=== PATIENT | female | born 1990 | race Two or more races ===

== ENCOUNTER 2020-07-28 10:43 | Outpatient (REF) | payer MEDICAID, SELFPAY | END 2020-07-28 10:44 | disposition home or self-care (01) | LOC: HO.LAB 10:43 | PROVIDERS: Visit Provider Internal Medicine | DX: Z20.828 Contact with and (suspected) exposure to other viral communicable diseases (principal) | CPT/HCPCS: C9803; U0003 ==

== ENCOUNTER 2020-09-01 15:01 | Outpatient (REF) | payer MEDICAID, SELFPAY | END 2020-09-01 15:02 | disposition home or self-care (01) | LOC: HO.LAB 15:01 | PROVIDERS: Visit Provider Internal Medicine | DX: Z20.828 Contact with and (suspected) exposure to other viral communicable diseases (principal) | CPT/HCPCS: C9803; U0003 ==

== ENCOUNTER → 2022-11-15 10:29 | Outpatient (BNVA) | payer OTHER, SELFPAY | PROVIDERS: PCP Nurse Practitioner Family; Visit Provider Physician Assistant Surgical ==

== ENCOUNTER 2022-11-29 08:59 | Outpatient (REF) | payer MEDICAID, SELFPAY ==
[2022-11-29 10:02] LABS: MANUAL DIFF FLAG NO
[2022-11-29 10:56] LABS: Basophils Percent Auto 0.3 % (0-2); Eosinophils Absolute Auto 0.2 X10*3/uL (0.0-0.4); Eosinophils Percent Auto 1.8 % (0-4); Hematocrit 35.7 % (37.0-47.0); Hemoglobin 11.3 g/dl (12.0-16.0); Imm Gran Abs Auto 0.03 X10*3/uL (0.00-0.03); Imm Gran Pct Auto 0.3 % (0.0-0.4); Lymphocytes Percent Auto 22.8 % (20-40); Mean Corpuscular HGB Conc 31.7 g/dl (31.0-35.0); Mean Corpuscular Hemoglobin 27.5 pg (27.0-33.0); Mean Corpuscular Volume 86.9 fL (80.0-98.0); Mean Platelet Volume 10.8 fL (9.4-12.3); Monocytes Absolute Auto 0.4 X10*3/uL (0.1-1.2); Neutrophils Absolute Auto 6.3 x10*3/uL (2.0-8.3); Neutrophils Percent Auto 70.8 % (45-73); Platelet Count 354 X10*3/uL (160-400); Red Blood Count 4.11 X10*6/uL (4.20-5.50); Red Cell Distribution Width 14.1 % (11.0-16.0); White Blood Count 8.9 X10*3/uL (4.8-10.8)
[2022-11-29 11:13] LABS: Estimated Average Glucose 111 mg/dL; Hemoglobin A1c % 5.5 %
[2022-11-29 12:53] LABS: Anion Gap 13 (12-20); Blood Urea Nitrogen 7 mg/dL (9-16); Calcium 8.9 mg/dL (8.4-10.2); Carbon Dioxide 25 mmol/L (22-29); Chloride 106 mmol/L (96-108); Cholesterol 178 mg/dL; Estimated Glomerular Filt Rate > 60; Glucose Random 88 mg/dL (60-115); HDL Cholesterol 48 mg/dL; Iron 47 mcg/dL (30-160); LDL Cholesterol Calculated 96 mg/dl; Percent Iron Saturation 14 % (15-50); Potassium 4.5 mmol/L (3.3-5.1); Sodium 139 mmol/L (135-145); Total Iron Binding Capacity 348 mcg/dL (228-428); Triglycerides 172 mg/dL; Unsaturated Iron Binding 301 ug/dL
[2022-11-29 13:25] LABS: Ferritin 15 ng/mL (10-122); Vitamin B12 268 pg/mL (200-900); Vitamin D 25-OH Total 24.7 ng/mL (>30)
[2022-11-30 16:13] LABS: Calcium (PTHI) 9.2 mg/dL (8.6-10.2); PTHI 65 pg/mL (16-77)
[2022-12-02 01:43] LABS: Zinc 68 mcg/dL (60-130)
[2022-12-03 12:23] LABS: Vitamin B1 12 nmol/L (8-30)
[2022-12-03 14:08] LABS: Vitamin A 41 mcg/dL (38-98)
== END 2022-11-29 09:00 | disposition home or self-care (01) ==
LOC: HO.LAB 08:59
PROVIDERS: PCP Nurse Practitioner Family; Visit Provider Physician Assistant Surgical
DX: E55.9 Vitamin D deficiency, unspecified (principal); E66.9 Obesity, unspecified
CPT/HCPCS: 36415; 80048; 80061; 82306; 82607; 82728; 82746; 83036; 83540; 83970; 84425; 84443; 84590; 84630; 85025; 99202

== ENCOUNTER → 2022-12-27 10:50 | Outpatient (BNVA) | payer OTHER, SELFPAY | PROVIDERS: PCP Nurse Practitioner Family; Visit Provider Dietitian, Registered | DX: E66.9 Obesity, unspecified (principal); Z68.35 Body mass index [BMI] 35.0-35.9, adult | CPT/HCPCS: 97802 ==

== ENCOUNTER → 2023-02-07 10:22 | Outpatient (BNVA) | payer OTHER, SELFPAY | PROVIDERS: PCP Nurse Practitioner Family; Visit Provider Physician Assistant Surgical ==

== ENCOUNTER 2023-03-14 11:38 | Outpatient (AMB) | payer OTHER, SELFPAY ==
[2023-03-14 11:39] VITALS: BP 124/60; PULSE 82; TEMP 35.9; O2SAT 98; BMI 33.1
--- NOTE | 2023-03-14 11:39 | MHC.OFFVISWM ---
Intake VS Expanded 03/14/23 11:39 Height 5 ft 2 in Weight 181 lb BMI 33.1 BP 124/60 Blood Pressure Location Rt brachial Blood Pressure Position Sitting Pulse 82 Pulse Source Pulse Oximeter Temp 96.7 F L Temperature Source Temporal Artery Scan Pulse Oximetry 98 Oxygen Delivery Method Room Air Body Fat 65.6 Body Fat Percentage 36.3 Free Fat Mass 115.4 Muscle Mass 109.6 Visceral Mass 7.0 Water Mass 82.6 BMR 1,596 Intake Visit Reasons: (OV) F/U [facility] [employer] Required: No Allergies walnut Allergy (Severe, Verified 03/14/23 11:41) Anaphylaxis Medication List - Last Reconciled 03/14/23 by DARIN Kim cholecalciferol (vitamin D3) (Vitamin D3) 25 mcg PO DAILY clonazepam 0.5 mg PO BID PRN fluticasone propionate 50 mcg/actuation 2 sprays intranasal DAILY HPI HPI Comments History of Present Illness Details 32 yo female returns for f/u [facility] program.? Started 11/29/22 with her weight of 201 pounds and a bmi of 3637.? Weight today is 181 pounds and a bmi of 33.1.? Weight loss of 20 pounds, 9.9 % [facility]WL. She reports that she is doing well.? She occasionally gets stomach ache and headache.? No complaints of nausea.? She has an appt with her PCP for c/o headache. meal plan: 2 Pure Protein shakes ([employer], [employer], [facility]) First shake (1 scoop in 8 oz low fat unsweetened almond milk) at 830am-1030am Second shake (1/2 scoop in 8 oz unsweetened almond milk) at? 1230pm-230pm 1 protein bar ([employer] Perfect bars at [employer], [facility], or [employer]) 1/2 bar at 430pm-530pm. Dinner at 3pm (7 forks of protein and 7 forks of salad/vegetables). Not measuring forkfuls, has a cup of veg and a small portion of protein The other 1/2 of the bar at 9pm-10pm. Drinking 80 oz water Exercise: Treadmill, 4 days per week, 400 calories. Speed 4 incline 0-8? PFSH Surgical History Hx of section Hx of cholecystectomy Family History Mother Hypertension Diabetes High cholesterol Father No problems noted. Sister Diabetes Sister Hypertension Daughter Asthma Social History Alcohol intake: never Patient Tobacco Use Status: Never used Tobacco Physical Exam Vital Signs: Last Vital Signs Temp 96.7 F L 03/14/23 11:39 Pulse 82 03/14/23 11:39 BP 124/60 03/14/23 11:39 Pulse Ox 98 03/14/23 11:39 Oxygen Delivery Method Room Air 03/14/23 11:39 BMI result Body Mass Index 33.1 Const General: healthy appearing and no acute distress Resp Effort & Inspection: normal respiratory effort Auscultation: clear to auscultation bilaterally Cardio Rate: regular rate Rhythm: regular rhythm GI Auscultation: normal bowel sounds Extrem General: Yes normal to inspection Assessment & Plan Assessment & Plan (1) Obesity (BMI 30-39.9): Code(s): E66.9 - Obesity, unspecified Plan: overall doing very well and satisfied w her weight loss Will adjust meal plan slightly to: 2 Pure Protein shakes First shake (1/2 scoop in 8 oz low fat unsweetened almond milk) at 830am-1030am Second shake (1/2 scoop in 8 oz unsweetened almond milk) at? 1230pm-230pm 1 protein bar ([employer] Perfect bars at [employer], [facility], or [employer]) 1/2 bar at 430pm-530pm. Dinner at 3pm (7 forks of protein and 7 forks of salad/vegetables). Not measuring forkfuls, has a cup of veg and a small portion of protein The other 1/2 of the bar at 9pm-10pm. Continue exercise RTC 1 month Coding Level of Care Code Est Pt Level 3 (02958) Diagnoses Obesity (BMI 30-39.9) E66.9
== END 2023-03-14 11:59 | disposition home or self-care (01) ==
PROVIDERS: PCP Nurse Practitioner Family; Visit Provider Physician Assistant Surgical
DX: E66.9 Obesity, unspecified (principal); Z68.33 Body mass index [BMI] 33.0-33.9, adult
CPT/HCPCS: 99213

== ENCOUNTER → 2023-03-14 11:38 | Outpatient (BNVA) | payer OTHER, SELFPAY | PROVIDERS: PCP Nurse Practitioner Family; Visit Provider Physician Assistant Surgical ==